=== PATIENT | female | born 1990 | race Caucasian/White ===

== ENCOUNTER → 2020-08-19 | Day surgery (SDC) | payer MEDICARE, OTHER ==
[~2020-08-19] MED LIST: AYGESTIN5 MG PO; BIRTH CONTROL; BIRTH CONTROL PO; BUSPIRONE HCL10 MG PO; CYMBALTA60 MG PO; DEXAMETHASONE SOD PHOS INJ 4 MG/ML VIAL ONE; DIAZEPAM5 MG PO; FENTANYL CITRATE/PF 100MCG/2 ML INJ ONE; GLUCOPHAGE500 MG PO; GLYCOPYRROLATE INJ 0.2 MG/ML VIAL ONE; LIDOCAINE 1% W/EPINEPHRINE 20 ML VIAL ONE; LIDOCAINE HCL 2% LOCAL INJ 5 ML SDV VIAL INJ ONE; LINZESS PO; METOCLOPRAMIDE HCL 10 MG/2ML VIAL ONE; MIDAZOLAM HCL 2 MG/2 ML VIAL ONE; NEOSTIGMINE 1 MG/ML 10ML VIAL ONE; ONDANSETRON HCL INJ 2MG/ML 2ML 2 MG/ML VIAL ONE; OXCARBAZEPINE600 MG; OXYMETAZOLINE HCL 0.05% NAS 1 SPRAY BTL ONE; PAXIL40 MG PO; PRILOSEC40 MG PO; PROPOFOL IV EMULSION 10 MG/ML 20 ML VIAL ONE; ROCURONIUM BROMIDE 10 MG/ML 5ML VIAL IV ONE; SEVOFLURANE INHAL SOLN 250 ML PEN BTL ONE; SYNTHROID112 MCG PO; TRAZODONE HCL50 MG PO; VITAMIN B122500 MCG; VITAMIN D; XANAX0.5 MG PO; XARELTO10 MG
--- NOTE | 2020-08-19 08:42 | Operative Report ---
DATE OF PROCEDURE: 08/19/2020 SURGEON: Derek Ann MD PREOPERATIVE DIAGNOSIS: Right maxillary sinus mass. POSTOPERATIVE DIAGNOSIS: Right maxillary sinus mucous retention cyst. PROCEDURE: Functional endoscopic sinus surgery (right maxillary sinus antrostomy with removal of mucous retention cyst). SIGNIFICANT FINDINGS: Right maxillary sinus mucous retention cyst. ANESTHESIA: General endotracheal tube anesthesia. SPECIMENS REMOVED: Right maxillary sinus contents. ESTIMATED BLOOD LOSS: Less than 5 mL. COMPLICATIONS: None. INDICATIONS: The patient is a 29-year-old white female with nasal congestion and facial pain, worse on the left side. She denies rhinorrhea. She has had no previous sinus or nasal surgery. She is a nonsmoker. Nasal endoscopy revealed mild diffuse mucosal inflammation without overt purulence. CT of the sinus performed on July 13, 2020, revealed complete opacification of the right maxillary sinus and a mucous retention cyst in the left maxillary sinus with a deviated septum to the left. On examination, she has mild diffuse intranasal mucosal inflammation. The septum is deviated to the left. She is scheduled for functional endoscopic sinus surgery (right maxillary antrostomy with removal of right maxillary sinus mass) for the treatment of right maxillary sinus opacification. Risks and complications were thoroughly discussed with the patient and her mother and they include infection, bleeding, scarring, failure to improve, need for additional operations, inability to smell or taste, chronic pain, leakage of cerebrospinal fluid ("brain fluid"), visual changes including double vision and blindness, exsanguination requiring blood transfusion (though the patient refuses blood transfusion), damage to surrounding nerves, blood vessels and muscles. They fully understand and give consent. DESCRIPTION OF PROCEDURE: The patient was taken to the operating room and placed supine on the operating table, where general anesthesia was achieved through orotracheal intubation. Eyes were taped. Cottonoid pledgets soaked with Afrin were inserted into the nose bilaterally. The face was prepped and draped in the usual sterile fashion. The cottonoid pledgets were then removed. Thorough examination with a rigid 0- degree nasal endoscope revealed the septum to be deviated to the left. There was no evidence of masses, purulence, or polyps. The left side appeared clear and was left undisturbed. Attention was then directed to the right side, where injection with 1% lidocaine with 1:100,000 epinephrine was injected into the junction of the right middle turbinate and the lateral nasal wall as well as the uncinate process and the anterior middle turbinate. Cottonoid pledget soaked with Afrin was inserted into the middle meatus and was then removed. The uncinate process was then taken down with a backbiter and up-biting Gómez-Cut instruments. The natural ostium of the right maxillary sinus was then identified and was enlarged to 1.5 cm in diameter with a backbiter, Gómez-Cut instruments and a microdebrider. A cyst was present, which released serous fluid and was consistent with a mucus retention cyst. This was then debrided with a microdebrider including its attachment inferiorly at the floor of the right maxillary sinus. Otherwise, the right maxillary sinus appeared clear with no evidence of significant inflammation, allergic mucin, purulence or masses. The cystic mass was consistent with a mucous retention cyst. Following this, the patient was awakened in the operating room, extubated, and taken to the recovery room in good condition. MD SHELIA Mckeon/ZHANNA /[id number]
[2020-08-19 09:10] VITALS: BP 138/88
== END | disposition home or self-care (01) ==
LOC: OR 05:48
PROVIDERS: ATTEND Otolaryngology
DX: J32.0 Chronic maxillary sinusitis (principal); J34.1 Cyst and mucocele of nose and nasal sinus; J34.2 Deviated nasal septum; G47.33 Obstructive sleep apnea (adult) (pediatric); D64.9 Anemia, unspecified; E66.01 Morbid (severe) obesity due to excess calories; K58.9 Irritable bowel syndrome, unspecified; N80.9 Endometriosis, unspecified; K21.9 Gastro-esophageal reflux disease without esophagitis; G40.802 Other epilepsy, not intractable, without status epilepticus; J45.909 Unspecified asthma, uncomplicated; E03.9 Hypothyroidism, unspecified; E28.2 Polycystic ovarian syndrome; F32.9 Major depressive disorder, single episode, unspecified; F41.9 Anxiety disorder, unspecified; Z01.812 Encounter for preprocedural laboratory examination; Z11.59 Encounter for screening for other viral diseases; Z79.02 Long term (current) use of antithrombotics/antiplatelets; Z79.84 Long term (current) use of oral hypoglycemic drugs
CPT/HCPCS: 31267; 81025; 88305; J1100; J2001; J2250; J2405; J2704; J2710; J2765; J3010; U0002; 88304